=== PATIENT | female | born 2000 | race Caucasian/White ===

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

== ENCOUNTER 2019-03-09 09:17 | Emergency (ER) | payer OTHER ==
--- NOTE | 2019-03-09 09:31 | ED Physician Documentation ---
General Adult - HISTORIAN Historian: patient - HPI Stated Complaint: abd pain Chief Complaint: General Adult Onset: days ago Timing: still present Severity: moderate Further Comments: yes (Pt is a 18 yo female with abd pain. No bm x 1 week , which she says is normal for her. Pt is sexually active. She has had a milky white vag discharge.) - ROS CONST: no problems EYES/ENT: none CVS/RESP: none GI/: abdominal pain, other (constipation) MS/SKIN/LYMPH: none - PAST HX Past History: other (Tonsils & adenoids.) Allergies/Adverse Reactions: Allergies Allergy/AdvReac Type Severity Reaction Status Date / Time Penicillins Allergy Hives Verified 03/09/19 10:10 Home Medications: Ambulatory Orders Medication Instructions Recorded NK 03/09/19 - SOCIAL HX Smoking History: cigarettes - FAMILY HX Family History: No - VITAL SIGNS Vital Signs: Vital Signs Temp Pulse Resp BP Pulse Ox 110/78 05/30/18 04:08 - REVIEWED ASSESSMENTS Nursing Assessment Reviewed: Yes Vitals Reviewed: Yes Progress - Progress Progress: Wet prep: pos clue cells no yeast, no trichomonas pos UTI Rx Metronidazole 500 mg. Take one every 12 hours for 7 days. Do not drink alcohol while taking this medication. Rx Bactrim DS. Take one every 12 hours for 7 days. General Adult Physical Exam - PHYSICAL EXAM GENERAL APPEARANCE: mild distress EENT: pharynx normal NECK: normal inspection, supple RESPIRATORY: no resp distress, chest non-tender, breath sounds normal CVS: reg rate & rhythm, heart sounds normal ABDOMEN: soft, normal bowel sounds, other (suprapubic tenderness; pelvic exam, external normal, white discharge) BACK: normal inspection, no CVA tenderness SKIN: warm/dry, normal color EXTREMITIES: non-tender, normal range of motion NEURO: oriented X3, motor nml, sensation nml Discharge Clincal Impression: Bacterial vaginitis UTI (urinary tract infection) Qualifiers: Urinary tract infection type: site unspecified Hematuria presence: without hematuria Qualified Code(s): N39.0 - Urinary tract infection, site not specified Referrals: Matilda Barnes, PRN [Primary Care Provider] - Condition: Good Disposition: 01 HOME, SELF-CARE Decision to Admit: NO Decision Time: 11:53
[2019-03-09] MEDS ORDERED: 0.9 % SODIUM CHLORIDE 1,000 ML IV ONE (09:33)
[2019-03-09] MEDS ORDERED: ONDANSETRON HCL/PF 4 MG/ 2ML VIAL IVP ONE (09:55)
[2019-03-09 10:05] LABS: NEUTROPHILS # 14.4 # k/uL (1.4-7.7)
[2019-03-09 10:16] LABS: eGFR (Non-African) > 60
[2019-03-09] MEDS ORDERED: KETOROLAC TROMETHAMINE 30 MG/1ML VIAL ONE (10:21)
[2019-03-09 11:59] LABS: APPEARANCE,URINE CLOUDY (CLEAR); COLOR,URINE YELLOW (YELLOW); OCCULT BLOOD,URINE TRACE-INTACT (NEGATIVE); UROBILINOGEN URINE 0.2 Eu (0.2-1.0)
[2019-03-09 14:42] VITALS: BP 118/79
== END 2019-03-09 12:18 | disposition home or self-care (01) ==
LOC: ED 09:17
DX: N39.0 Urinary tract infection, site not specified (principal); N76.0 Acute vaginitis
CPT/HCPCS: 80053; 81002; 83690; 85025; 87086; 87491; 87591; 96361; 96374; 99282; 99284; J1885; J2405; J7030; S1016